=== PATIENT | female | born 1955 | race Caucasian/White ===

== ENCOUNTER 2020-08-10 08:36 | Outpatient (CLI) | payer MEDICARE, SELFPAY ==
--- NOTE | ~2020-08-10 | MR_ITS ---
EXAMINATION: MR knee RT wo con DATE: 08/10/2020 09:46 INDICATION: Bone lesion. Medial and posterior right knee pain. Instability. TECHNIQUE: Magnetic resonance imaging (MRI) of the right knee was performed without intravenous contr ast. Sequences included axial PD-weighted FS FSE, coronal PD-weighted FSE and PD-weighted FS FSE, sag ittal PD-weighted FSE, and sagittal T2-weighted FS FSE. COMPARISON: Right knee radiographs 11/02/2005 FINDINGS: Medial compartment: There is a complex tear involving body of medial meniscus. There is deep partial thickness cartilage loss of tibial condyle involving the central and medial articular surface. There is deep partial thic kness cartilage loss of femoral condyle involving the central, medial, and posterior articular surfac e. There are tiny osteophytes. Lateral compartment: There is an undersurface horizontal tear of body and posterior horn of lateral meniscus. There is sha llow partial-thickness cartilage loss of tibial condyle. There is bone marrow edema of tibial condyle posteriorly, likely stress reaction. There is shallow partial-thickness cartilage loss of femoral co ndyle. Osteophytes are noted. Patellofemoral compartment: There is shallow partial-thickness cartilage loss of patellar lateral facet and median ridge and cart ilage surface irregularity of patellar medial facet. There is partial-thickness cartilage loss of lat eral and central trochlea. Osteophytes are noted. Ligaments and tendons: The anterior and posterior cruciate ligaments are normal. Medial collateral ligament and lateral codie ateral ligament complex are normal. There is mild patellar tendinopathy. Fluid: There is a small knee joint effusion. There is mild prepatellar and superficial infrapatellar bursiti s. There is trace fluid in a Rizo's cyst. Osseous/other: There is a 10 mm lesion of increased T2-weighted signal intensity in medial femoral condyle, stable f rom 11/02/2005, likely a benign finding such as an enchondroma. IMPRESSION: 1. Moderate chondrosis of medial compartment and mild chondrosis of lateral and patellofemoral compar tments. 2. Tears of medial and lateral menisci. 3. Small knee joint effusion. 4. Lesion in medial femoral condyle, stable from 11/02/2005, likely a benign finding such as an enchon droma. Reviewed, dictated and finalized at [facility] IMPRESSION: 1. Moderate chondrosis of medial compartment and mild chondrosis of lateral and patellofemoral compartments. 2. Tears of medial and lateral menisci. 3. Small knee joint effusion. 4. Lesion in medial femoral condyle, stable from 11/02/2005, likely a benign fin ding such as an enchondroma.
== END 2020-08-10 08:37 | disposition home or self-care (01) ==
PROVIDERS: PCP Nurse Practitioner Family; Visit Provider Nurse Practitioner Family
DX: S83.231A Complex tear of medial meniscus, current injury, right knee, initial encounter (principal); S83.281A Other tear of lateral meniscus, current injury, right knee, initial encounter; M70.41 Prepatellar bursitis, right knee; M22.42 Chondromalacia patellae, left knee
CPT/HCPCS: 73721

== ENCOUNTER 2020-12-22 19:57 | Emergency (ER) | payer MEDICARE, SELFPAY ==
--- NOTE | ~2020-12-22 | CT_ITS ---
EXAMINATION: CT brain wo con DATE: 12/22/2020 20:26 INDICATION: Fall. Patient struck back of head. TECHNIQUE: Computed tomography (CT) of the head was performed without intravenous contrast. The mA wa s adjusted according to patient size. Iterative reconstruction technique was employed. Exam dose: 60 5.33 mGy-cm total exam DLP. COMPARISON: None FINDINGS: No intracranial mass lesion or hemorrhage or cerebrovascular accident is evident. No midlin e shift or mass effect. Normal ventricular size. Bilateral carotid siphon internal carotid artery calcifications are noted. No subdural or epidural hematoma is detected. No fracture or bone destruction of the cranial vault. An opacified left ethmoid air cell is noted. The left frontal sinus isn't developed. Included paranas al sinuses and mastoid air cells are otherwise well aerated. IMPRESSION: No acute intracranial abnormality or skull fracture Cerebral atherosclerosis Reviewed, dictated and finalized at [facility]. Reviewed, dictated and finalized at location [facility].
--- NOTE | ~2020-12-22 | CT_ITS ---
EXAMINATION: CT cervical spine wo con DATE: 12/22/2020 20:26 INDICATION: Fall. Neck injury. TECHNIQUE: Computed tomography (CT) of the cervical spine was performed without intravenous contrast. Automated exposure control and iterative reconstruction technique were employed. Exam dose: 236.20 mGy-cm total exam DLP. COMPARISON: None FINDINGS: There is straightening of the cervical spine which may be due to muscle spasm and/or positi oning. C1 and C2 are normally aligned and the odontoid process is intact. Status post anterior cervical spine surgical fusion at C4-6. There is mild degenerative disc disease and mild anterolisthesis at C3-4. There is severe degenerative disc disease at C6-7. There is degenerative change at the apophyseal joints bilaterally, most severe at C2-3 and C3-4. No fracture or dislocation or locked facet or prevertebral soft tissue swelling is detected. Incidental finding of bilateral apical scarring.. IMPRESSION: Straightening of the cervical spine which may be due to muscle spasm No fracture or dislocation detected Status post anterior cervical spine surgical fusion at C4-C6 Degenerative disc disease, most severe at C6-7 Degenerative change at the apophyseal joints Reviewed, dictated and finalized at [facility]. Reviewed, dictated and finalized at location [facility]. IMPRESSION: Straightening of the cervical spine which may be due to muscle spa sm No fracture or dislocation detected Status post anterior cervical spine surgical fusion at C4-C6 Degenerative disc disease, most severe at C6-7 Degenerative change at the apophyseal joints
[2020-12-22 20:00] VITALS: BP 145/73; PULSE 80; RESP 20; TEMP 36.7; O2SAT 96
--- NOTE | 2020-12-22 20:15 | ED.WOUNDLAC ---
HPI - Wound/Laceration General Chief Complaint: Wound/Laceration Stated Complaint: fall/ head lac Time Seen by Provider: 12/22/20 20:08 Source: RN notes reviewed History of Present Illness HPI narrative: Patient presents to emergency department from home via EMS for a fall. Patient states that she had too much wine today and fell striking her head on a dresser pacer with a laceration of the right side of her scalp does not believe she had any loss of consciousness. States that she is unsure of her last tetanus shot. Denies any other injury at this time. Denies any vision changes numbness or tingling in the extremities chest pain shortness of breath extremity pain or any other symptoms Related Data Home Medications Medication Instructions Recorded Confirmed No Home Medications 12/22/20 12/22/20 Allergies Allergy/AdvReac Type Severity Reaction Status Date / Time hydrocodone AdvReac Severe N/V Verified 07/10/15 21:47 Review of Systems Review of Systems: Narrative: Gen.: Denies fevers or chills Eyes: Denies eye pain or visual change ENT: Denies congestion Respiratory: Denies shortness of breath or cough CV: Denies chest pain or palpitations GI: Denies abdominal pain nausea, emesis or diarrhea Musculoskeletal: Denies back pain or extremity pain Neuro: Denies numbness, tingling, weakness or focal weakness Skin: See HPI Except as documented, all other systems reviewed and negative [facility] Past Medical History Medical History (Updated 12/22/20 @ 21:25 by Kevin Arizmendi DO) Patient denies significant medical history Social History Social History (Updated 12/22/20 @ 20:17 by Kevin Arizmendi DO) Smoking status: Never smoker Exam Narrative: Exam Narrative: APPEARANCE: No acute distress, nontoxic, resting in bed EYES: EOMI HEENT: Normocephalic, swelling over the right lateral scalp with 3 cm laceration present that is linear and deep with mild venous bleeding no foreign body, Neck supple no midline tenderness palpation RESPIRATORY: No respiratory distress Clear to auscultation bilaterally with no rhonchi wheezing or rales. CARDIOVASCULAR: Regular rate and rhythm without murmurs rubs or gallops. ABDOMINAL: Soft, nontender, nondistended, no rebound or guarding MUSCULOSKELETAl: Moves all extremities. No tenderness of the bilateral upper or lower extremities with full range of motion of each NEURO: Awake and alert x 3Following commands, speech normal, no focal deficits SKIN:: Warm, dry. See HEENT for scalp laceration PSYCHIATRIC: Normal affect/mood, Course Course Emergency Course: Patient would walk to bathroom with no difficulty. Daughter is present to take the patient home Discussed with patient results of workup and diagnosis. Discussed need for follow-up with primary care, proper use of medication, and reasons to return to the emergency department. Patient understands and agrees to current treatment plan Vital Signs Vital signs: Vital Signs Temperature 98.0 F 12/22/20 20:00 Pulse Rate 80 12/22/20 20:00 Respiratory Rate 20 12/22/20 20:00 Blood Pressure 145/73 H 12/22/20 20:00 Pulse Oximetry 96 12/22/20 20:00 Temperature 98.0 F 12/22/20 20:00 Pulse Rate 80 12/22/20 20:00 Respiratory Rate 20 12/22/20 20:00 Blood Pressure 145/73 H 12/22/20 20:00 Pulse Oximetry 96 12/22/20 20:00 Procedures Laceration Laceration 1: ====== Skin Level ====== ====== Subcutaneous Layer ====== ====== Muscle Layer ====== ====== Tendon Layer ====== Dressin cm scalp laceration verbal consent was obtained prior to the procedure. The wound was cleaned and irrigated with copious amounts of normal saline. Wound was explored is no foreign body seen. The wound was then closed with 4 jamshid . . Patient tolerated the procedure well MDM - Wound/Laceration Imaging Data Radiologist's impression: ITS Impressions Head CT 12/22/20 21:08 IMPRESSION: No acut
[2020-12-22] MEDS: TETANUS,DIPHTHERIA,AC PERTUSSIS ADULT (0.5 ML) BOOSTRIX IM (20:28)
[2020-12-22] MEDS: ACETAMINOPHEN 500 MG TABLET 1000 MG PO (21:44)
[2020-12-22 21:45] VITALS: BP 142/80; PULSE 78; RESP 20; O2SAT 99
== END 2020-12-22 21:46 | disposition home or self-care (01) ==
PROVIDERS: Emergency Provider Emergency Medicine; PCP Nurse Practitioner Family
DX: S01.01XA Laceration without foreign body of scalp, initial encounter (principal); Z23 Encounter for immunization; I67.2 Cerebral atherosclerosis; Z98.1 Arthrodesis status; M50.323 Other cervical disc degeneration at C6-C7 level; W01.190A Fall on same level from slipping, tripping and stumbling with subsequent striking against furniture, initial encounter
CPT/HCPCS: 12002; 70450; 72125; 90471; 90715; 99284; A9270

== ENCOUNTER 2022-10-27 14:45 | Outpatient (CLI) | payer MEDICARE, SELFPAY ==
--- NOTE | ~2022-10-27 | DEXA_ITS ---
Bone Density Report Name: GARRETT HOLLINGSWORTH Age: 67 Sex: Female Ethnicity: White Date of : 1955 Indication: postmenopausal; screening for osteoporosis; height loss; prior fracture; Referring Provider: NICHODAVID Study: Bone densitometry was performed. Exam Date: October 27, 2022 Accession number: [id number] Bone Density: Region BMD T-score Z-score Classification AP Spine(L1-L4) 1.003 -0.4 1.7 Normal Femoral Neck (Left) 0.660 -1.7 0.1 Osteopenia Total Hip (Left) 0.650 -2.4 -0.9 Osteopenia Femoral Neck (Right) 0.584 -2.4 -0.6 Osteopenia Total Hip (Right) 0.629 -2.6 -1.1 Osteoporosis Total Hip Mean 0.640 -2.5 -1.0 Osteoporosis World Health Organization criteria for BMD impression classify patients as: Normal (T-score at or above -1.0), Osteopenia (T-score between -1.0 and -2.5), or Osteoporosis (T-score at or below -2.5). 10-year Fracture Risk: FRAX not reported because: Some T-score for Spine Total or Hip Total or Femoral Neck at or below -2.5 Prior hip or vertebral fracture Clinical Information Provided by Patient: Have had a previous hip or vertebral fracture Has had a low trauma fracture Smokes Has used the following medications: Vitamin D Patient maximum height was 69 Menopause Age: 50 No regular weight bearing exercise Drinks caffeinated beverages Onset of menses at age 16 Number of children 5 Impression: The patient has established osteoporosis, based on the Right Total Hip T-score and the existence of a prior fracture. The patient has risk factors, including: smoking, previous fracture. Discussion: HIGH RISK OF FRACTURE. BONE DENSITY IS UNDESIRABLY LOW AT ONE OR MORE SKELETAL SITES, CONSISTENT WITH POSTMENOPAUSAL OSTEOPOROSIS. This patient's lowest T-score, in a patient who has previously fractured, meets the World Health Organization's (WHO) criteria for severe osteoporosis. In untreated patients, the risk of osteoporotic fracture increases approximately two-fold for each 1.0 SD decrease in T-score. Low bone density is not the only risk factor for fracture; also consider factors such as patient's age, frailty or poor health, risk of falling, risk of injury, previous osteoporotic fracture, family history of osteoporosis, cigarette smoking, low body weight, etc. Not everyone with low bone mineral density has osteoporosis; osteomalacia and other metabolic bone disorders should also be considered. Patients who have osteoporosis should be evaluated for specific diseases and conditions (secondary causes) that may cause or contribute to bone loss. The [place] [employer]ocr[employer] (AACE) and National Osteoporosis Foundation (NOF) recommend pharmacologic intervention for all postmenopausal women with a previous hip or vertebral fracture and a T-score in this range
--- NOTE | ~2022-10-27 | MM_ITS ---
EXAMINATION: MM screening radha BI w dino HISTORY: Screening mammogram TECHNIQUE: Craniocaudal and mediolateral oblique 3-D tomosynthesis images were obtained and synthetic 2-D images were generated. CAD analysis was submitted and interpreted. COMPARISON: 10/05/2018, 08/28/2016, 08/26/2015 bilateral screening mammogram examinations BREAST PARENCHYMAL COMPOSITION: There are scattered areas of fibroglandular density. FINDINGS: There is no evidence of suspicious mass, calcification, or architectural distortion to sugg est malignancy in either breast. There has been no suspicious interval change. IMPRESSION: 1. No mammographic evidence of malignancy. 2. Recommend routine screening mammography in one year. BI-RADS Category 1: Negative Reviewed, dictated and finalized at location [facility]. ER FIXED INCOME
== END 2022-10-27 14:46 | disposition home or self-care (01) ==
PROVIDERS: PCP Nurse Practitioner Family; Visit Provider Nurse Practitioner Family
DX: M81.0 Age-related osteoporosis without current pathological fracture (principal); Z12.31 Encounter for screening mammogram for malignant neoplasm of breast; Z78.0 Asymptomatic menopausal state
CPT/HCPCS: 77063; 77067; 77080